=== PATIENT | female | born 1975 | race Caucasian/White ===

== ENCOUNTER 2018-10-17 10:44 | Inpatient (IN) | payer MEDICARE, OTHER ==
[2018-10-17] MEDS ORDERED: Charcoal ACTIVATED* 25 GM/120 ML BTL PO ONE (10:52)
--- NOTE | 2018-10-17 11:02 | ED ---
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 She reports never attempting suicide before, but takes Wellbutrin for depression. Patient previously had renal failure and went into dialysis. After a right kidney transplant, she has felt okay. The patient rates the pain 0/10 in severity. Symptoms aggravated by nothing. Symptoms alleviated by nothing. Patient reports sadness, tiredness, SI. PMHx of FSGS, depression, acute renal failure. PSHx right kidney transplant, appendectomy. FHx of depression, anxiety , skin cancer. Patient very rarely uses alcohol, does not use tobacco or drugs. - History Of Current Complaint Chief Complaint: EDOverdose Stated Complaint: POSS OVERDOSE Time Seen by Provider: 10/17/18 10:51 Hx Obtained From: Patient Ingestion History: Type/Name Of Drug - 5mg oxycodone, Amount Ingested - 16 pills , Approximate Time Of Ingestion - 1 hour [employer]AG MACH[employer] OPERATOR HELPER Overdose Characteristics: Oral Severity Currently: None Character: Depressed, Other - Tired Aggravating Factor(s): Nothing Alleviating Factor(s): Nothing Associated Signs And Symptoms: Other: - SI, tiredness, sadness Related Hx: Suicidal - Allergies/Home Medications Allergies/Adverse Reactions: Allergies Allergy/AdvReac Type Severity Reaction Status Date / Time acetaminophen [From Percocet] Allergy Hallucinati Verified 10/17/18 11:25 ons levofloxacin [From Levaquin] Allergy Hallucinati Verified 10/17/18 11:25 ons oxycodone [From Percocet] Allergy Hallucinati Verified 10/17/18 11:25 ons Penicillins Allergy Rash Verified 10/17/18 11:25 Home Medications: Home Medications Aspirin Tab 81 mg PO DAILY 10/17/18 [History Confirmed 10/17/18] Ergocalciferol CAP* [Drisdol CAP*] 50,000 units PO WEEKLY 10/17/18 [History Confirmed 10/17/18] Folic Acid 1 mg PO DAILY 10/17/18 [History Confirmed 10/17/18] Imitrex TAB* 50 mg PO DAILY PRN 10/17/18 [History Confirmed 10/17/18] Lipitor 20 MG* 10 mg PO DAILY 10/17/18 [History Confirmed 10/17/18] Lisinopril 5 mg PO BID 10/17/18 [History Confirmed 10/17/18] Mag-Oxide 400 mg PO BID 10/17/18 [History Confirmed 10/17/18] Meclofenamate Sodium 375 mg PO BID 10/17/18 [History Confirmed 10/17/18] Metoprolol Tartrate 25 mg PO DAILY 10/17/18 [History Confirmed 10/17/18] Multivitamin 1 tab PO DAILY 10/17/18 [History Confirmed 10/17/18] Prograf CAP(*) 1 mg PO BID 10/17/18 [History Confirmed 10/17/18] Topiramate 50 mg PO DAILY 10/17/18 [History Confirmed 10/17/18] Zantac TAB (NF) 150 mg PO DAILY 10/17/18 [History Confirmed 10/17/18] buPROPion HCl [Bupropion Xl] 150 mg PO DAILY 10/17/18 [History Confirmed ] predniSONE [Prednisone 5 MG TAB] 5 mg PO DAILY 10/17/18 [History Confirmed 10/17] PMH/Surg Hx/FS Hx/Imm Hx Previously Healthy: No History: Reports: Hx Acute Renal Failure, Other Problems/Disorders - FSGS Psychiatric History: Reports: Hx Depression - Surgical History Surgery Procedure, Year, and Place: Right kidney transplant 2017 Infectious Disease History: No Infectious Disease History: Denies: Traveled Outside the [place] in Last 30 Days - Family History Known Family History: Positive: Other - Depression, anxiety, skin cancer - Social History Alcohol Use: Rare Hx Substance Use: No Substance Use Type: Reports: None Hx Tobacco Use: No Smoking Status (MU): Never Smoked Tobacco Review of Systems Neurological: Other - Tired Psychological: Other - SI Positive: Depressed All Other Systems Reviewed And Are Negative: Yes Physical Exam - Summary Physical Exam Summary: VITAL SIGNS: Reviewed. GENERAL: Patient is a well-developed and nourished female who is lying comfortable in the stretcher. Patient is not in any acute respiratory distress. HEAD AND FACE: No signs of trauma. No ecchymosis, hematomas or skull depressions. No sinus tenderness. EYES: PERRLA, EOMI x 2, No injected conjunctiva, no nystagmus. EARS: Hearing grossly intact. Ear canals and tympanic membranes are within normal limits. MOUTH: Oropharynx within normal limits. NECK: Supple, trachea is midline, no adenopathy, no JVD, no carotid bruit, no c- spine tenderness, neck with full ROM. CHEST: Symmetric, no tenderness at palpation LUNGS: Clear to auscultation bilaterally. No wheezing or crackles. CVS: Regular rate and rhythm, S1 and S2 present, no murmurs or gallops appreciated. ABDOMEN: Soft, non-tender. No signs of distention. No rebound no guarding, and no masses palpated. Bowel sounds are normal. EXTREMITIES: FROM in all major joints, no edema, no cyanosis or clubbing. NEURO: Alert and oriented x 3. No acute neurological deficits. Speech is normal and follows commands. SKIN: Dry and warm. Triage Information Reviewed: Yes Vital Signs On Initial Exam: Initial Vitals Temp Pulse Resp BP Pulse Ox 98.4 F 69 18 136/103 100 10/17/18 10:46 10/17/18 10:46 10/17/18 10:46 10/17/18 10:46 10/17/18 10:46 Vital Signs Reviewed: Yes Diagnostics - Vital Signs Vital Signs Temp Pulse Resp BP Pulse Ox 10/17/18 10:46 98.4 F 69 18 136/103 100 - Laboratory Result Diagrams: 10/17/18 11:23 10/17/18 11:23 Lab Statement: Any lab studies that have been ordered have been reviewed, and results considered in the medical decision making process. - EKG 1111 Cardiac Rate: Bradycardia - 59 BPM EKG Rhythm: Sinus Bradycardia ST Segment: Normal Summary of EKG Findings: Sinus bradycardia at 59 BPM, no ST elevations, normal axis. 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 Patient previously had renal failure and went into dialysis. After a right kidney transplant, she has felt okay. The patient rates the pain 0 /10 in severity. Symptoms aggravated by nothing. Symptoms alleviated by nothing. Patient reports sadness, tiredness, SI. PMHx of FSGS, depression, acute renal failure. PSHx right kidney transplant, appendectomy. FHx of depression, anxiety, skin cancer. Patient very rarely uses alcohol, does not use tobacco or drugs. The patient was placed in a cardiac care nurse, IV access was obtained, the patient was given IV fluids, and I ordered charcoal since the patient took her oxycodone orally 1 hour ago. Poison control was contacted and they also recommended IV fluids, Narcan if needed, charcoaled, and observation for possible 6 hours. EKG shows a sinus bradycardia at [address] elevations. Blood test results without any significant abnormality except for creatinine 1.42,. Urinalysis is negative for UTI, and urine toxicology is negative. Therefore, the patient was clear for mental health evaluation. Dr. Mae assessed the patient and he recommends admission to his services for further workup and management. Patient is hemodynamically stable alert and oriented 3. - Diagnoses Provider Diagnoses: Persistent mood [affective] disorder, unspecified Discharge - Sign-Out/Discharge Documenting (check all that apply): Patient Departure - Admit Patient Received Moderate/Deep Sedation with Procedure: No - Discharge Plan Condition: Fair Disposition: ADMITTED TO [facility] - Billing Disposition and Condition Condition: FAIR Disposition: Admitted to [facility] - Attestation Statements Document Initiated by Mauricio: Yes Documenting Scribe: Jensen Mota Provider For Whom Mauricio is Documenting (Include Credential): Art Bartholomew MD Scribe Attestation: I, Jensen Mota, scribed for Art Bartholomew MD on 10/17/18 at 1822. Scribe Documentation Reviewed: Yes Provider Attestation: The documentation as recorded by the Jensen amanda accurately reflects the service I personally performed and the decisions made by me, Art Bartholomew MD Status of Scribe Document: Viewed
[2018-10-17 11:35] LABS: ABS Eosinophils 0.2 10^3/ul (0-0.6); ABS Lymphocytes 0.6 10^3/ul (1.0-4.8); ABS Monocytes 0.6 10^3/ul (0-0.8); ABS Neutrophils 5.4 10^3/ul (1.5-7.7); Eosinophil % 2.4 %; Hematocrit 36 % (35-47); Hemoglobin 11.6 g/dL (12.0-16.0); Lymphocyte % 8.4 %; Mean Corpuscular HGB Conc 32 g/dL (31-36); Mean Corpuscular Hemoglobin 27 pg (27-31); Mean Corpuscular Volume 84 fL (80-97); Mean Platelet Volume 9.4 fL (7.4-10.4); Platelet Count 227 10^3/uL (150-450); Red Blood Count 4.27 10^6 /uL (3.70-4.87); Red Cell Distribution Width 15 % (10-15); White Blood Count 6.7 10^3/uL (3.5-10.8)
[2018-10-17 11:48] LABS: ALT 8 U/L (7-52); AST 12 U/L (13-39); Albumin 3.9 g/dL (3.2-5.2); Albumin/Globulin Ratio 1.9 (1-3); Alkaline Phosphatase 37 U/L (34-104); Anion Gap 4 mmol/L (2-11); BUN/Creatinine Ratio 15.5 (8-20); Blood Urea Nitrogen 22 mg/dL (6-24); CO2 Carbon Dioxide 24 mmol/L (22-32); Calcium 9.7 mg/dL (8.6-10.3); Chloride 110 mmol/L (101-111); EGFR African American 49.3 (>60); EGFR Non-African American 40.8 (>60); Globulin 2.1 g/dL (2-4); Glucose 98 mg/dL (70-100); Sodium 138 mmol/L (135-145)
[2018-10-17 12:00] LABS: Acetaminophen < 15 mcg/mL; Alcohol < 10 mg/dL (<10); Salicylate < 2.50 mg/dL (<30)
[2018-10-17] MEDS ORDERED: NS 0.9% 1000 ML** 1,000 ML IV ONE (12:04)
[2018-10-17 12:11] LABS: HCG Pregnancy < 0.60 mIU/mL
[2018-10-17 12:15] LABS: TSH (Thyroid Stimulating Horm) 2.41 mcIU/mL (0.34-5.60)
[2018-10-17 14:12] LABS: Urine Appearance Clear; Urine Bacteria Absent (Absent); Urine Bilirubin Negative (Negative); Urine Blood Negative (Negative); Urine Color Yellow; Urine Glucose Negative (Negative); Urine Ketones Negative (Negative); Urine Nitrite Negative (Negative); Urine Protein 1+(30 mg/dL) (Negative); Urine Red Blood Cell Absent (Absent); Urine Squamous Epithelial Cell Present (Absent); Urine Urobilinogen Negative (Negative); Urine White Blood Cell Trace(0-5/hpf) (Absent)
[2018-10-17 14:40] LABS: Urine Benzodiazepine Screen None Detected (None Detect); Urine Opiates Screen None Detected (None Detect)
[2018-10-17] MEDS ORDERED: Ondansetron INJ* 2 MG/ML VIAL IV ONE (18:06)
[2018-10-17] MEDS ORDERED: Al Hydrox/Mg Hydrox/Simet LIQ* 30 ML UDC PO PRN (18:43)
[2018-10-17] MEDS ORDERED: SUMAtriptan TAB* 50 MG PO PRN (18:46)
[2018-10-17] MEDS: Tacrolimus CAP(*) 1 MG PO SCH (20:35)
[2018-10-17] MEDS: Tacrolimus CAP(*) 0.5 MG PO SCH (20:37)
[2018-10-17] MEDS ORDERED: [UNRECOGNIZED DRUG - OTHER] PO SCH (21:00)
[2018-10-17] MEDS: MYCOPHENOLATE 360 MG PO SCH (21:46)
[2018-10-17] MEDS: Magnesium Oxide TAB* 400 MG PO SCH (21:46)
[2018-10-17] MEDS: Metoprolol Tartrate TAB* 25 MG PO SCH (22:48)
[2018-10-17] MEDS: Atorvastatin* 20 MG TAB PO SCH (22:48)
[2018-10-17] MEDS: Famotidine TAB* 20 MG PO SCH (22:48)
[2018-10-18 07:19] LABS: HDL Cholesterol 55.5 mg/dL
[2018-10-18] MEDS: Tacrolimus CAP(*) 1 MG PO SCH ×2 (08:20→20:24)
[2018-10-18] MEDS: predniSONE TAB* 5 MG PO SCH (08:20)
[2018-10-18] MEDS: Folic Acid TAB* 1 MG PO SCH (08:20)
[2018-10-18] MEDS: Topiramate TAB(*) 25 MG PO SCH (08:20)
[2018-10-18] MEDS: Vitamin THERAPEUTIC TAB PO SCH (08:20)
[2018-10-18] MEDS: Aspirin EC TAB* 81 MG TAB.EC PO SCH (08:20)
[2018-10-18] MEDS: Lisinopril TAB* 5 MG PO SCH (08:21)
[2018-10-18] MEDS: MYCOPHENOLATE 360 MG PO SCH ×2 (08:22→20:24)
[2018-10-18] MEDS ORDERED: BuPROPion XL* 150 MG TAB.XL PO SCH (09:00)
--- NOTE | 2018-10-18 11:27 | HP ---
H&P (Free Text) History and Physical: Justification for admission: Immediate Safety. CC " I took pills" The patient was brought to [facility] by her after he discovered that she overdoses on 16 pills of oxycodone that she has saved from 2 years ago , when she had a kidney transplant. She was treated for overdose in the emergency department given IV fluids and charcoal. She never lost consciousness. Upon taking the pills she went outside to throw up and noticed that the pills did not come out. At that time her saw what was going on and took her to the hospital. The patient reported current stressors to be fighting with her and not having much family support in [place] . 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 She has been taking care of her after he fell out of a tree stand. She has struggled with thoughts of leaving her because she feels that he was not compassionate about her being sick in the past with kidney issues and depression and has the mind set to "just get over it." Her sister plans to visit from [place] at the end of the week. She has access to firearms at home ( her husbands guns) and stockpiles of medications from her kidney surgery. She reported poor sleep and appetite. The patient denied homicidal ideation intent or plan. The patient denied auditory and/ or visual hallucinations. MDD She reported feeling depressed and having diminished interests which were found to be enjoyable in the past which include cooking and reading. She has been feeling empty inside, with feelings of hopelessness , and worthlessness. She reported unintentional 8lbs weight loss and diminished appetite. She has interruption of sleep and decreased concentration. Anxiety Denied having symptoms of anxiety such as having times where heart feels that it is beating out of chest , sweaty palms, or shallow breathing. Denied having uncomfortable or intrusive thoughts. Denied feeling restless, high strung, or worrying too much most of the time. Bipolar Denied symptoms of mandeep such as having many ideas at once. Denied increased talkativeness where no one can interrupt. Denied feeling irritable most of the time while having an persistent abundance of energy most of the day without the use of energy drinks, stimulants, or recreational drug use. Denied an increase in intensity in goal directed activities. Denied having the decreased need to sleep for days , having prolonged elevated heighted mood , or feeling on top of the world. Denied impulsive risky sexual encounters. Denied spending money recklessly , going on spending sprees wiping out savings. Denied impulsively traveling out of town or country, having super gregory, and unrealistic wealth or fame. Psychosis Does not endorse hearing things that other people do not hear or seeing things other people do not see. Denied feeling that TV is making references. Denied feeling that people are spying , following , or reading their thoughts. Phobias: Patient denied having excessive fear of a particular thing or situation. Eating disorders: Patient denied having excessive eating habits or feelings of guilt after eating. Denied repeated episodes of self induced vomiting after eating. PTSD Denied flashbacks, nightmares and avoidance of a prior traumatic event. PAST PSYCHIATRIC HISTORY: Prior Diagnosis : Major Depressive Disorder first episode in mid teens. History of past Psychiatric Hospitalizations: No prior psychiatric admission. History of past suicide/homicide attempts : Denied past suicide attempts. Denied past homicidal incidents. Outpatient follow-up: No mental health follow up since 2016 in [place]. Medications: Past trials of medications include vortioxetine 20mg daily. Prior positive response between [id number] and stopped taking in 2016 due to not wanting to take pills anymore. Current mediations include wellbutrin 150mg daily Guardianship: None. FAMILY HISTORY: - Suicide: Denied family history of suicide. - Mental illness: One of her sisters Dx with depression, the other Bipolar II disorder. Father Dx with Anxiety disorder - Substance abuse: Denied substance abuse among family members. SUBSTANCE ABUSE HISTORY: Denied using alcohol, tobacco, heroin cocaine or other illicit substances. Denied recreationally abusing pills. Denied past Substance abuse treatment. SOCIAL HISTORY: She grew up in [facility]. Both of her parents are together and living in [place]. She denied physical and or sexual trauma. She is , no children and lives with her in [facility]. 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 - Legal history: Denied - service history: Denied PAST MEDICAL HISTORY: Focal segmental glomerulosclerosis. Dx at 32 years old and underwent a kidney transplant in December 2016. - Allergies: Penicillin, oxycodone, levofloxacin, acetaminophen. Physical Exam: Please see ED note Mental Status Exam on Admission APPEARANCE : 43 year old female who appears stated age. Patient is not malodourous, and appears to have fair hygiene and grooming. BEHAVIOR: Cooperative , calm EYE CONTACT: Fair PSYCHOMOTOR ACTIVITY: No psychomotor agitation or retardation. MOVEMENTS: No abnormal movements observed. SPEECH : Normal rate, rhythm, volume and tone. MOOD : "okay " AFFECT : Type is depressed, Range is restricted with shallow depth Mood Congruent Labile THOUGHT PROCESS: Formulated and organized in a logical, linear goal directed manner. No flight of ideas, neologism (made up words) , perseveration , tangential , loose associations , or circumstantiality. THOUGHT CONTENT: no delusions, obsessions, phobias or preoccupations. PERCEPTION: No current auditory or visual hallucinations. Doesnt appear to be responding to internal cues. No evidence of depersonalization , de-realization, or illusions SUICIDALITY Recent suicide attempt HOMICIDALITY Denied homicidal ideation, intent or plan. Insight/judgment: Fair insight and judgment ORIENTATION: Oriented to self, location, and time. Diagnosis on Admission: Major Depressive disorder, severe. Assessment: 43 year old female with a history of major depressive disorder came to the hospital following a overdose of 16 pills of oxycodone and was stabilized in the emergency room and admitted to the [facility] at [facility]. Plan #Admit to BSU, Q15 minute observation. Start regular diet. Encourage participation in activities on the milieu. #Patient evaluated in ED and was determined by the emergency room Physician to be medically fit for admission to the BSU. # Justification for Admission: For immediate safety per outlined in the [place] Mental Hygiene Code. # Voluntary admission. The patient requires inpatient admission at this time to assure safety, receive treatment and work toward stabilization. # Labs ordered: CBC, CMP, UDS, TSH, HBA1c, TSH, Toxicology screen, Urine analysis, and lipid profile. # EKG ordered # B-HCG was ordered and results are negative. # Obtain collateral information from , have firearms removed and or locked up and stockpile of medications removed. # Collaboration with Social Work to assist with disposition and after care. # Start trintellix 10mg daily, no dose adjustment required for renal disease. Taper down wellbutrin due to renal interaction. #Medicine consulted for medical issues and recommended repeating CMP to monitor Cr. #Monitor vital signs and monitor for change in mental status. #Goals before discharge include: To eliminate/ reduce suicidal ideation The risks, benefits, and alternative treatment options were discussed as well as of the risks of refusing treatment. After this discussion and an acknowledgement of this understanding was made. A risk/ benefit assessment of treatment was considered and discussed with the patient. When comparing the risks of treatment with the dangers of not receiving treatment, the benefits of treatment outweigh the treatment risks at this time. Risks of allergy, suicidal ideation, behavioral changes, dystonia, rashes, electrolyte imbalances, movement disorders, cardiac conduction changes, serotonin syndrome, metabolic risks were among some of the risks discussed. Vital Signs Temp Pulse Resp BP Pulse Ox 98.7 F 72 16 118/74 100 10/18/18 08:00 10/18/18 08:00 10/18/18 08:00 10/18/18 08:00 10/18/18 08:00 Al Hydrox/Mg Hydrox/Simethicone (Maalox Plus*) 30 ml PO Q4H PRN PRN Reason: INDIGESTION Aspirin (Aspirin Ec Tab*) 81 mg PO DAILY [facility] Last Admin: 10/18/18 08:20 Dose: 81 mg Atorvastatin Calcium (Lipitor*) 20 mg PO BEDTIME [facility] Last Admin: 10/17/18 22:48 Dose: 20 mg Bupropion HCl (Wellbutrin Tab*) 75 mg PO DAILY [facility] Ergocalciferol (Drisdol Cap*) 5,000 unit PO WEEKLY [facility] Famotidine (Pepcid Tab*) 20 mg PO BEDTIME [facility] Last Admin: 10/17/18 22:48 Dose: 20 mg Folic Acid (Folvite Tab*) 1 mg PO DAILY [facility] Last Admin: 10/18/18 08:20 Dose: 1 mg Lisinopril (Prinivil Tab*) 5 mg PO DAILY [facility] Last Admin: 10/18/18 08:21 Dose: 5 mg Magnesium Oxide (Magox 400 Tab*) 400 mg PO BID [facility] Last Admin: 10/18/18 12:02 Dose: 400 mg Metoprolol Tartrate (Lopressor Tab*) 25 mg PO BEDTIME [facility] Last Admin: 10/17/18 22:48 Dose: 25 mg Multivitamins (Theragran Tab*) 1 tab PO DAILY [facility] Last Admin: 10/18/18 08:20 Dose: 1 tab Mycophenolate Sodium (Myfortic (Nf)) 360 mg PO BID [facility] Last Admin: 10/18/18 08:22 Dose: 360 mg Prednisone (Deltasone Tab*) 5 mg PO DAILY [facility] Last Admin: 10/18/18 08:20 Dose: 5 mg Sumatriptan Succinate (Imitrex Tab*) 50 mg PO DAILY PRN PRN Reason: MIGRAINE HEADACHE Tacrolimus (Prograf Cap(*)) 3 mg PO BID [facility] Last Admin: 10/18/18 08:20 Dose: 3 mg Tacrolimus (Prograf Cap(*)) 0.5 mg PO BEDTIME [facility] Last Admin: 10/17/18 20:37 Dose: 0.5 mg Topiramate (Topamax(*)) 50 mg PO DAILY [facility] Last Admin: 10/18/18 08:20 Dose: 50 mg Vortioxetine (Trintellix (Nf)) 10 mg PO DAILY [facility] 10/17/18 10/17/18 10/17/18 11:23 11:23 11:23 WBC 6.7 RBC 4.27 Hgb 11.6 L Hct 36 MCV 84 MCH 27 MCHC 32 RDW 15 Plt Count 227 MPV 9.4 Neut % (Auto) 79.7 Lymph % (Auto) 8.4 [place] % (Auto) 8.8 Eos % (Auto) 2.4 Baso % (Auto) 0.7 Absolute Neuts (auto) 5.4 Absolute Lymphs (auto) 0.6 L Absolute Monos (auto) 0.6 Absolute Eos (auto) 0.2 Absolute Basos (auto) 0.0 Absolute Nucleated RBC 0.0 Nucleated RBC % 0.0 Sodium 138 Potassium 5.0 Chloride 110 Carbon Dioxide 24 Anion Gap 4 BUN 22 Creatinine 1.42 H Est GFR ( Amer) 49.3 Est GFR (Non-Af Amer) 40.8 BUN/Creatinine Ratio 15.5 Glucose 98 Hemoglobin A1c Lactic Acid 0.4 L Calcium 9.7 Total Bilirubin 0.50 AST 12 L ALT 8 Alkaline Phosphatase 37 Total Protein 6.0 L Albumin 3.9 Globulin 2.1 Albumin/Globulin Ratio 1.9 Triglycerides Cholesterol LDL Cholesterol HDL Cholesterol TSH 2.41 Beta HCG, Quant < 0.60 Urine Color Urine Appearance Urine pH Ur Specific [place] Urine Protein Urine Ketones Urine Blood Urine Nitrate Urine Bilirubin Urine Urobilinogen Ur Leukocyte Esterase Urine WBC (Auto) Urine RBC (Auto) Ur Squamous Epith Cells Urine Bacteria Urine Glucose Salicylates < 2.50 Urine Opiates Screen Acetaminophen < 15 Ur Barbiturates Screen Ur Phencyclidine Scrn Ur Amphetamines Screen U Benzodiazepines Scrn Urine Cocaine Screen U Cannabinoids Screen Serum Alcohol < 10 10/17/18 10/17/18 10/18/18 13:55 13:55 06:54 WBC RBC Hgb Hct MCV MCH MCHC RDW Plt Count MPV Neut % (Auto) Lymph % (Auto) [place] % (Auto) Eos % (Auto) Baso % (Auto) Absolute Neuts (auto) Absolute Lymphs (auto) Absolute Monos (auto) Absolute Eos (auto) Absolute Basos (auto) Absolute Nucleated RBC Nucleated RBC % Sodium Potassium Chloride Carbon Dioxide Anion Gap BUN Creatinine Est GFR ( Amer) Est GFR (Non-Af Amer) BUN/Creatinine Ratio Glucose Hemoglobin A1c Lactic Acid Calcium Total Bilirubin AST ALT Alkaline Phosphatase Total Protein Albumin Globulin Albumin/Globulin Ratio Triglycerides 116 Cholesterol 141 LDL Cholesterol 62 HDL Cholesterol 55.5 TSH Beta HCG, Quant Urine Color Yellow Urine Appearance Clear Urine pH 6.0 Ur Specific [place] 1.010 Urine Protein 1+(30 mg/dl) A Urine Ketones Negative Urine Blood Negative Urine Nitrate Negative Urine Bilirubin Negative Urine Urobilinogen Negative Ur Leukocyte Esterase Negative Urine WBC (Auto) Trace(0-5/hpf) Urine RBC (Auto) Absent Ur Squamous Epith Cells Present A Urine Bacteria Absent Urine Glucose Negative Salicylates Urine Opiates Screen None detected Acetaminophen Ur Barbiturates Screen None detected Ur Phencyclidine Scrn None detected Ur Amphetamines Screen None detected U Benzodiazepines Scrn None detected Urine Cocaine Screen None detected U Cannabinoids Screen None detected Serum Alcohol 10/18/18 06:54 WBC RBC Hgb Hct MCV MCH MCHC RDW Plt Count MPV Neut % (Auto) Lymph % (Auto) [place] % (Auto) Eos % (Auto) Baso % (Auto) Absolute Neuts (auto) Absolute Lymphs (auto) Absolute Monos (auto) Absolute Eos (auto) Absolute Basos (auto) Absolute Nucleated RBC Nucleated RBC % Sodium Potassium Chloride Carbon Dioxide Anion Gap BUN Creatinine Est GFR ( Amer) Est GFR (Non-Af Amer) BUN/Creatinine Ratio Glucose Hemoglobin A1c 5.5 Lactic Acid Calcium Total Bilirubin AST ALT Alkaline Phosphatase Total Protein Albumin Globulin Albumin/Globulin Ratio Triglycerides Cholesterol LDL Cholesterol HDL Cholesterol TSH Beta HCG, Quant Urine Color Urine Appearance Urine pH Ur Specific [place] Urine Protein Urine Ketones Urine Blood Urine Nitrate Urine Bilirubin Urine Urobilinogen Ur Leukocyte Esterase Urine WBC (Auto) Urine RBC (Auto) Ur Squamous Epith Cells Urine Bacteria Urine Glucose Salicylates Urine Opiates Screen Acetaminophen Ur Barbiturates Screen Ur Phencyclidine Scrn Ur Amphetamines Screen U Benzodiazepines Scrn Urine Cocaine Screen U Cannabinoids Screen Serum Alcohol
[2018-10-18] MEDS: Magnesium Oxide TAB* 400 MG PO SCH ×2 (12:02→22:30)
[2018-10-18] MEDS: VORTIOXETINE 10 MG PO SCH (16:14)
[2018-10-18] MEDS: Tacrolimus CAP(*) 0.5 MG PO SCH (20:25)
[2018-10-18] MEDS: Famotidine TAB* 20 MG PO SCH (20:25)
[2018-10-18] MEDS: Atorvastatin* 20 MG TAB PO SCH (20:25)
[2018-10-18] MEDS: Metoprolol Tartrate TAB* 25 MG PO SCH (20:31)
[2018-10-19] MEDS ORDERED: Ondansetron TAB* 4 MG PO ONE (08:44)
[2018-10-19] MEDS ORDERED: Ondansetron TAB* 4 MG ONE (09:01)
[2018-10-19] MEDS: Tacrolimus CAP(*) 1 MG PO SCH ×2 (09:02→20:41)
[2018-10-19] MEDS: buPROPion TAB* 75 MG PO SCH (09:02)
[2018-10-19] MEDS: Magnesium Oxide TAB* 400 MG PO SCH ×2 (09:03→23:26)
[2018-10-19] MEDS: predniSONE TAB* 5 MG PO SCH (09:03)
[2018-10-19] MEDS: Lisinopril TAB* 5 MG PO SCH (09:04)
[2018-10-19] MEDS: Folic Acid TAB* 1 MG PO SCH (09:04)
[2018-10-19] MEDS: Topiramate TAB(*) 25 MG PO SCH (09:04)
[2018-10-19] MEDS: Aspirin EC TAB* 81 MG TAB.EC PO SCH (09:05)
[2018-10-19] MEDS: Vitamin THERAPEUTIC TAB PO SCH (09:05)
[2018-10-19] MEDS: VORTIOXETINE 10 MG PO SCH (09:06)
[2018-10-19] MEDS: MYCOPHENOLATE 360 MG PO SCH ×2 (09:11→20:38)
[2018-10-19] MEDS ORDERED: Benzonatate CAP* 100 MG PO PRN (12:51)
[2018-10-19] MEDS ORDERED: Ondansetron TAB* 4 MG PO PRN (12:53)
[2018-10-19] MEDS: Pantoprazole TAB * 40 MG TAB PO SCH (14:03)
--- NOTE | 2018-10-19 16:24 | PN ---
Subjective - Subjective Date of Service: 10/19/18 Service Type: 95071 Hosp care 35 min high complexity Subjective: Nursing Report: Patient was visible on unit, no chemical restraints or PRNs. Patient had multiple episodes of emesis . Attending group activities. CC: "Alright Patient was seen and evaluated today in the common room. She is excited to see her sister who is coming from [facility], on . The patient reported she feels safe on the unit and is interacting with peers. She reported having an adequate appetite and sleep but reports feeling nauseated and threw up a few times. The patient reports attending and participating in day groups. Objective - General Observations Appearance: Neat Appears Stated Age: Yes Stature: Thin Posture: WNL Eye Contact: Average Behavior/Activity: WNL - Interaction Observations Attitude Towards Examiner: Cooperative Stated Mood: Dysphoric Affect: Blunted Speech Pattern/Tone: Clear Thought Process: Coherent Perception: WNL Thought Content: Depressive Thought Process: Lethality: Passive Wish Hallucination Type: None Delusion Type: None - Cognitive Function Orientation: A&O x 4 Level of Consciousness: Awake Cognition: WNL - Medication Compliance Cooperative with Inpatient Medication Regimen: Yes - Group Participation Participates in Group Activities: Yes Assessment - Assessment Merits Inpatient Hospitalization: For Immediate Safety Clinical Impression: 43 year old female with a history of major depressive disorder, presented after a suicide attempt by overdosing on oxycodone. Plan - Plan Treatment Plan: Name: FANNY VARELA Birthdate: 1975 [id number] # Q30 minute observation with staff pass # Social Work on board # Start trintellix 10mg daily, no dose adjustment required for renal disease. To take with food. # Plan to taper down wellbutrin due to renal interaction. #Medicine consulted for medical issues and recent emesis and fever. They determined that she can be treated in the setting of the [facility]. #Monitor vital signs #Goals before discharge include: To eliminate/ reduce suicidal ideation Sodium 138 mmol/L (135-145) 10/17/18 11:23 Potassium 5.0 mmol/L (3.5-5.0) 10/17/18 11:23 BUN 22 mg/dL (6-24) 10/17/18 11:23 Creatinine 1.42 mg/dL (0.51-0.95) H 10/17/18 11:23 Hemoglobin A1c 5.5 % (4.0-5.6) 10/18/18 06:54 Calcium 9.7 mg/dL (8.6-10.3) 10/17/18 11:23 AST 12 U/L (13-39) L 10/17/18 11:23 ALT 8 U/L (7-52) 10/17/18 11:23 Triglycerides 116 mg/dL 10/18/18 06:54 Cholesterol 141 mg/dL 10/18/18 06:54 LDL Cholesterol 62 mg/dL 10/18/18 06:54 Vital Signs Temp Pulse Resp BP Pulse Ox 101.1 F 87 18 133/77 99 10/19/18 08:57 10/19/18 08:57 10/19/18 11:09 10/19/18 08:57 10/19/18 08:57 Continued Medication Management: Continue Outpt Medication Medications: Current Medications Acetaminophen (Tylenol Tab*) 650 mg PO Q6H PRN PRN Reason: FEVER/HEADACHE Al Hydrox/Mg Hydrox/Simethicone (Maalox Plus*) 30 ml PO Q4H PRN PRN Reason: INDIGESTION Last Admin: 10/19/18 05:47 Dose: 30 ml Aspirin (Aspirin Ec Tab*) [address] [facility] Last Admin: 10/19/18 09:05 Dose: 81 mg Atorvastatin Calcium (Lipitor*) [address] [facility] Last Admin: 10/18/18 20:25 Dose: 20 mg Benzonatate (Tessalon Cap*) 100 mg PO BID PRN PRN Reason: COUGH Bupropion HCl (Wellbutrin Tab*) [address] [facility] Last Admin: 10/19/18 09:02 Dose: 75 mg Ergocalciferol (Drisdol Cap*) 5,[address] [facility] Folic Acid (Folvite Tab*) [address] [facility] Last Admin: 10/19/18 09:04 Dose: 1 mg Lisinopril (Prinivil Tab*) [address] [facility] Last Admin: 10/19/18 09:04 Dose: 5 mg Magnesium Oxide (Magox 400 Tab*) [address] [facility] Last Admin: 10/19/18 09:03 Dose: 400 mg Metoprolol Tartrate (Lopressor Tab*) [address] [facility] Last Admin: 10/18/18 20:31 Dose: 25 mg Multivitamins (Theragran Tab*) [address] [facility] Last Admin: 10/19/18 09:05 Dose: 1 tab Mycophenolate Sodium (Myfortic (Nf)) [address] [facility] Last Admin: 10/19/18 09:11 Dose: 360 mg Ondansetron HCl (Zofran Tab*) 4 mg PO Q6H PRN PRN Reason: NAUSEA Pantoprazole Sodium (Protonix Tab*) [address] [facility] Last Admin: 10/19/18 14:03 Dose: 40 mg Prednisone (Deltasone Tab*) [address] [facility] Last Admin: 10/19/18 09:03 Dose: 5 mg Sumatriptan Succinate (Imitrex Tab*) 50 mg PO DAILY PRN PRN Reason: MIGRAINE HEADACHE Last Admin: 10/19/18 05:47 Dose: 50 mg Tacrolimus (Prograf Cap(*)) [address] [facility] Last Admin: 10/19/18 09:02 Dose: 3 mg Tacrolimus (Prograf Cap(*)) 0.[address] [facility] Last Admin: 10/18/18 20:25 Dose: 0.5 mg Topiramate (Topamax(*)) [address] [facility] Last Admin: 10/19/18 09:04 Dose: 50 mg Vortioxetine (Trintellix (Nf)) [address] [facility] Last Admin: 10/19/18 09:06 Dose: 10 mg - Discharge Plan Discharge Plan: Inpatient Hospitalization
[2018-10-19] MEDS: Atorvastatin* 20 MG TAB PO SCH (20:36)
[2018-10-19] MEDS: Metoprolol Tartrate TAB* 25 MG PO SCH (20:37)
[2018-10-19] MEDS: Tacrolimus CAP(*) 0.5 MG PO SCH (20:40)
[2018-10-19 22:15] LABS: ABS Basophils 0.1 10^3/ul (0-0.2); ABS Eosinophils 0.3 10^3/ul (0-0.6); ABS Lymphocytes 0.5 10^3/ul (1.0-4.8); ABS Monocytes 1.3 10^3/ul (0-0.8); ABS Neutrophils 9.5 10^3/ul (1.5-7.7); Eosinophil % 2.5 %; Hematocrit 37 % (35-47); Hemoglobin 12.4 g/dL (12.0-16.0); Mean Corpuscular HGB Conc 33 g/dL (31-36); Mean Corpuscular Hemoglobin 28 pg (27-31); Mean Corpuscular Volume 83 fL (80-97); Mean Platelet Volume 9.5 fL (7.4-10.4); Platelet Count 220 10^3/uL (150-450); Red Blood Count 4.49 10^6 /uL (3.70-4.87); Red Cell Distribution Width 15 % (10-15); White Blood Count 11.7 10^3/uL (3.5-10.8)
[2018-10-19 22:31] LABS: BUN/Creatinine Ratio 12.5 (8-20); Calcium 9.1 mg/dL (8.6-10.3); EGFR African American 59.9 (>60); EGFR Non-African American 49.5 (>60)
[2018-10-20 07:47] LABS: ABS Eosinophils 0.3 10^3/ul (0-0.6); ABS Lymphocytes 0.6 10^3/ul (1.0-4.8); ABS Monocytes 1.1 10^3/ul (0-0.8); ABS Neutrophils 6.3 10^3/ul (1.5-7.7); Eosinophil % 3.5 %; Hematocrit 34 % (35-47); Hemoglobin 11.3 g/dL (12.0-16.0); Lymphocyte % 7.3 %; Mean Corpuscular HGB Conc 33 g/dL (31-36); Mean Corpuscular Hemoglobin 28 pg (27-31); Mean Corpuscular Volume 83 fL (80-97); Mean Platelet Volume 9.7 fL (7.4-10.4); Nucleated Red Blood Cells % 0.1; Platelet Count 189 10^3/uL (150-450); Red Cell Distribution Width 15 % (10-15); White Blood Count 8.4 10^3/uL (3.5-10.8)
[2018-10-20 08:15] LABS: Albumin 3.5 g/dL (3.2-5.2); Albumin/Globulin Ratio 1.8 (1-3); BUN/Creatinine Ratio 10.4 (8-20); Calcium 8.5 mg/dL (8.6-10.3); EGFR African American 69.1 (>60); EGFR Non-African American 57.1 (>60); Globulin 1.9 g/dL (2-4); Potassium 4.2 mmol/L (3.5-5.0); Total Bilirubin 0.4 mg/dL (0.2-1.0); Total Protein 5.4 g/dL (6.4-8.9)
[2018-10-20] MEDS: Tacrolimus CAP(*) 1 MG PO SCH ×2 (08:39→20:13)
[2018-10-20] MEDS: predniSONE TAB* 5 MG PO SCH (08:39)
[2018-10-20] MEDS: VORTIOXETINE 10 MG PO SCH (08:40)
[2018-10-20] MEDS: MYCOPHENOLATE 360 MG PO SCH ×2 (08:42→20:12)
[2018-10-20] MEDS: Folic Acid TAB* 1 MG PO SCH (08:43)
[2018-10-20] MEDS: Lisinopril TAB* 5 MG PO SCH (08:43)
[2018-10-20] MEDS: buPROPion TAB* 75 MG PO SCH (08:44)
[2018-10-20] MEDS: Vitamin THERAPEUTIC TAB PO SCH (08:44)
[2018-10-20] MEDS: Aspirin EC TAB* 81 MG TAB.EC PO SCH (08:44)
[2018-10-20] MEDS: Pantoprazole TAB * 40 MG TAB PO SCH (08:44)
[2018-10-20] MEDS: Topiramate TAB(*) 25 MG PO SCH (08:44)
--- NOTE | 2018-10-20 08:54 | PN ---
Subjective - Subjective Date of Service: 10/20/18 Service Type: 27324 Hosp care 35 min high complexity Subjective: Nursing Report: Patient was visible on unit, no chemical restraints or PRNs. Patient had no episodes of emesis during the evening or this AM . Attending group activities. CC: "Better Patient was seen and evaluated today in the common room. She denied fever, nausea or vomiting overnight and is eating breakfast this morning. Her sister plans to arrive from [facility], on evening. The patient reported she feels safe on the unit and is interacting with peers. The patient reported attending and participating in day groups. Objective - General Observations Appearance: Neat Appears Stated Age: Yes Stature: WNL Posture: WNL Eye Contact: Average Behavior/Activity: WNL - Interaction Observations Attitude Towards Examiner: Cooperative Stated Mood: Dysphoric Affect: Blunted Speech Pattern/Tone: Clear Thought Process: Coherent, Disorganized Thought Content: WNL, Paranoid Thought Process: Lethality: Paranoid Ideation Hallucination Type: None, Auditory Delusion Type: None, Thought Broadcasting - Cognitive Function Orientation: A&O x 4 Level of Consciousness: Awake - Medication Compliance Cooperative with Inpatient Medication Regimen: Yes - Group Participation Participates in Group Activities: Yes Assessment - Assessment Clinical Impression: 43 year old female with a history of major depressive disorder, presented after a suicide attempt by overdosing on oxycodone. Plan - Plan Treatment Plan: Name: FANNY VARELA Birthdate: 1975 [id number] # Q30 minute observation with staff pass # Social Work on board #D/C wellbutrin # Continue trintellix 10mg daily, no dose adjustment required for renal disease. To take with food. #Medical management per Medicine team. #Monitor vital signs #Goals before discharge include: To eliminate/ reduce suicidal ideation Giovani her confirmed firearms locked in safe and he got rid of stockpile of medications Tentative discharge Thursday at 11am her sister and plan to pick her up. Vital Signs Temp Pulse Resp BP Pulse Ox 98.9 F 86 20 143/89 100 10/20/18 08:00 10/20/18 08:00 10/20/18 08:00 10/20/18 08:00 10/20/18 08:00 Sodium 138 mmol/L (135-145) 10/17/18 11:23 Potassium 5.0 mmol/L (3.5-5.0) 10/17/18 11:23 BUN 22 mg/dL (6-24) 10/17/18 11:23 Creatinine 1.42 mg/dL (0.51-0.95) H 10/17/18 11:23 Hemoglobin A1c 5.5 % (4.0-5.6) 10/18/18 06:54 Calcium 9.7 mg/dL (8.6-10.3) 10/17/18 11:23 AST 12 U/L (13-39) L 10/17/18 11:23 ALT 8 U/L (7-52) 10/17/18 11:23 Triglycerides 116 mg/dL 10/18/18 06:54 Cholesterol 141 mg/dL 10/18/18 06:54 LDL Cholesterol 62 mg/dL 10/18/18 06:54 Continued Medication Management: Continue Outpt Medication Medications: Current Medications Acetaminophen (Tylenol Tab*) 650 mg PO Q6H PRN PRN Reason: FEVER/HEADACHE Al Hydrox/Mg Hydrox/Simethicone (Maalox Plus*) 30 ml PO Q4H PRN PRN Reason: INDIGESTION Last Admin: 10/19/18 05:47 Dose: 30 ml Aspirin (Aspirin Ec Tab*) 81 mg PO DAILY [facility] Last Admin: 10/20/18 08:44 Dose: 81 mg Atorvastatin Calcium (Lipitor*) 20 mg PO BEDTIME [facility] Last Admin: 10/19/18 20:36 Dose: 20 mg Benzonatate (Tessalon Cap*) 100 mg PO BID PRN PRN Reason: COUGH Bupropion HCl (Wellbutrin Tab*) 75 mg PO DAILY [facility] Last Admin: 10/20/18 08:44 Dose: 75 mg Ergocalciferol (Drisdol Cap*) 5,000 unit PO WEEKLY [facility] Folic Acid (Folvite Tab*) 1 mg PO DAILY [facility] Last Admin: 10/20/18 08:43 Dose: 1 mg Lisinopril (Prinivil Tab*) 5 mg PO DAILY [facility] Last Admin: 10/20/18 08:43 Dose: 5 mg Magnesium Oxide (Magox 400 Tab*) 400 mg PO BID [facility] Last Admin: 10/19/18 23:26 Dose: Not Given Metoprolol Tartrate (Lopressor Tab*) 25 mg PO BEDTIME [facility] Last Admin: 10/19/18 20:37 Dose: 25 mg Multivitamins (Theragran Tab*) 1 tab PO DAILY [facility] Last Admin: 10/20/18 08:44 Dose: 1 tab Mycophenolate Sodium (Myfortic (Nf)) 360 mg PO BID [facility] Last Admin: 10/20/18 08:42 Dose: 360 mg Ondansetron HCl (Zofran Tab*) 4 mg PO Q6H PRN PRN Reason: NAUSEA Pantoprazole Sodium (Protonix Tab*) 40 mg PO DAILY [facility] Last Admin: 10/20/18 08:44 Dose: 40 mg Prednisone (Deltasone Tab*) 5 mg PO DAILY [facility] Last Admin: 10/20/18 08:39 Dose: 5 mg Sumatriptan Succinate (Imitrex Tab*) 50 mg PO DAILY PRN PRN Reason: MIGRAINE HEADACHE Last Admin: 10/19/18 05:47 Dose: 50 mg Tacrolimus (Prograf Cap(*)) 3 mg PO BID [facility] Last Admin: 10/20/18 08:39 Dose: 3 mg Tacrolimus (Prograf Cap(*)) 0.5 mg PO BEDTIME [facility] Last Admin: 10/19/18 20:40 Dose: 0.5 mg Topiramate (Topamax(*)) 50 mg PO DAILY [facility] Last Admin: 10/20/18 08:44 Dose: 50 mg Vortioxetine (Trintellix (Nf)) 10 mg PO DAILY WITH MEAL [facility] Last Admin: 10/20/18 08:40 Dose: 10 mg - Discharge Plan Discharge Plan: Inpatient Hospitalization
[2018-10-20] MEDS: Magnesium Oxide TAB* 400 MG PO SCH ×2 (11:18→23:55)
--- NOTE | 2018-10-20 12:49 | CONSULT ---
Subjective Date of Service: 10/19/18 Interval History: Ms. Burk is a 43 year old female that was admitted to [facility] for intentional overdose of narcotics. We have bee requeted for medical consult for current complaints of fever, nausea and vomiting. In particular, she vomited after taking her meds but was on an empty stomach. The patient also has medical history of renal transplant and is on immunosuppressive therapy. Ms. Burk was evaluated in her room. She is currently feeling better, vomiting is improved, she is afebrile, states has a persistent cough, mildly productive. Had a soft stool today without overt diarrhea. She was able to tolerate clear liquids this morning. She works at [employer]. Review of Systems - Measurements Intake and Output: Intake and Output Last 24 Hours 10/18/18 10/19/18 10/20/18 10/21/18 06:59 06:59 06:59 06:59 Intake Total 1000 Balance 1000 Weight 165 lb 165 lb 165 lb Intake: IV Fluids 1000 - Review of Systems Constitutional Symptoms: Negative: Weight Gain, Weight Loss, Weakness, Fatigue, Fever, Night Sweats, Unexplained Falls, Other Dermatology: Negative: Normal, Rash, Skin Lesions, Cancer, Skin Lumps, Other HEENT: Negative: Normal, Change in Hearing, Vertigo, Dental Problems, Tinnitus, Sinus Problem, Other Eyes: Negative: Normal, Change in Vision, Double Vision, Eye Pain, Glaucoma, Cataract, Contacts or Glasses, Other Thyroid: Negative: Normal, Goiter, Thyroid Nodule, Cold Intolerance, Heat Intolerance , Sweatiness, Tremor, Frequent Defecation, Constipation, Palpitations, Primary Hypothyroidism, Primary Hyperthyroidism, Weight Loss, Weight Gain, Change in Skin/Hair, Change in Menstruation, Radiation Exposure, Other Pulmonary: Positive: Cough, Sputum Negative: Normal, Hemoptysis, Wheezing, Respiratory Distress, Shortness of Breath, COPD, Asthma, Exercise Intolerance, Home Oxygen, Other Cardiology: Negative: Normal, Chest Pain, Shortness of Breath, Palpitations, Swelling of Ankles, Peripheral Vascular Dis, Edema, Faintness, Syncope, Claudication, Proximal NocturnalDyspnea, Orthopnoea, Other Gastroenterology: Positive: Nausea, Vomiting Negative: Normal, Abdominal Pain, Anorexia, Indigestion, Difficulty Swallowing, Heartburn, Constipation, Diarrhea, Blood in Stools, Change in Bowel Habits, Haematemesis, Melena, Other Genital - Urinary: Negative: Normal, Dysuria, Hematuria, Polyuria, Nocturia, Other Genitourinay - Female: Negative: Menses Normal, Vaginal Discharge, Menopause, Dysmenorrhea, Other Musculoskeletal: Negative: Joint Pain, Joint Stiffness, Arthritis, Osteoporosis, Low Back Pain , Sciatica, Joint Deformities, Kyphoscoliosis, Other Endocrinology: Negative: Normal, Thyroid Problems, Adrenal Problems, Gonadal Problems, Family Hx Endocrine Disorders, Obesity, Diabetes Mellitus, Hyperglycemia, Hx Hypoglycemia, Diabetic Foot Ulcers, Calluses, Hirsutism, Menstrual Abnormalities , Polydipsia, Polyuria, Gonadal Problems, Gynecomastia, Pituitary disease, Other Hematologic/Lymphatic: Negative: Anemia, Easy Bruising, Hx Leukemia, Hx Lymphoma, Use of Anticoagulant, Use of Antiplatelet Drugs, Other Neurology: Negative: Normal, Headache, Migraines, Change in Vision, Diplopia, Dizziness , Change in Balancing, Change in Coordination, Change in Memory, Change in Speech, Change in Sphincter Function, Change in Walking, Numbness\Paresthesiae, Unexplained Weakness, Hx of Stroke\TIA, Hx of Seizures, Other Psychiatry: Positive: Depression, Depressed Mood Negative: Normal, Anxiety, Anhedonia, Sexual Dysfunction, Weight Change, Guilt Feelings, Tearfulness, Unusual Fatigue, Unusual Anxiety, Suicidal Ideation , Hypomania, Eating Disorders, Other Allergic/Immunologic: Positive: Immunocompromise Negative: Hx Anaphylaxis, Hx Angioedema, Hx Environmental, Hx Seasonal, Asthma, Hx HIV, Swollen Glands LymphNodes, Other Objective Active Medications: Acetaminophen (Tylenol Tab*) 650 mg PO Q6H PRN PRN Reason: FEVER/HEADACHE Al Hydrox/Mg Hydrox/Simethicone (Maalox Plus*) 30 ml PO Q4H PRN PRN Reason: INDIGESTION Last Admin: 10/19/18 05:47 Dose: 30 ml Aspirin (Aspirin Ec Tab*) 81 mg PO DAILY [facility] Last Admin: 10/20/18 08:44 Dose: 81 mg Atorvastatin Calcium (Lipitor*) 20 mg PO BEDTIME [facility] Last Admin: 10/19/18 20:36 Dose: 20 mg Benzonatate (Tessalon Cap*) 100 mg PO BID PRN PRN Reason: COUGH Ergocalciferol (Drisdol Cap*) 5,000 unit PO WEEKLY [facility] Folic Acid (Folvite Tab*) 1 mg PO DAILY [facility] Last Admin: 10/20/18 08:43 Dose: 1 mg Lisinopril (Prinivil Tab*) 5 mg PO DAILY [facility] Last Admin: 10/20/18 08:43 Dose: 5 mg Magnesium Oxide (Magox 400 Tab*) 400 mg PO BID [facility] Last Admin: 10/20/18 11:18 Dose: 400 mg Metoprolol Tartrate (Lopressor Tab*) 25 mg PO BEDTIME [facility] Last Admin: 10/19/18 20:37 Dose: 25 mg Multivitamins (Theragran Tab*) 1 tab PO DAILY [facility] Last Admin: 10/20/18 08:44 Dose: 1 tab Mycophenolate Sodium (Myfortic (Nf)) 360 mg PO BID [facility] Last Admin: 10/20/18 08:42 Dose: 360 mg Ondansetron HCl (Zofran Tab*) 4 mg PO Q6H PRN PRN Reason: NAUSEA Pantoprazole Sodium (Protonix Tab*) 40 mg PO DAILY [facility] Last Admin: 10/20/18 08:44 Dose: 40 mg Prednisone (Deltasone Tab*) 5 mg PO DAILY [facility] Last Admin: 10/20/18 08:39 Dose: 5 mg Sumatriptan Succinate (Imitrex Tab*) 50 mg PO DAILY PRN PRN Reason: MIGRAINE HEADACHE Last Admin: 10/19/18 05:47 Dose: 50 mg Tacrolimus (Prograf Cap(*)) 3 mg PO BID [facility] Last Admin: 10/20/18 08:39 Dose: 3 mg Tacrolimus (Prograf Cap(*)) 0.5 mg PO BEDTIME [facility] Last Admin: 10/19/18 20:40 Dose: 0.5 mg Topiramate (Topamax(*)) 50 mg PO DAILY [facility] Last Admin: 10/20/18 08:44 Dose: 50 mg Vortioxetine (Trintellix (Nf)) 10 mg PO DAILY WITH MEAL [facility] Last Admin: 10/20/18 08:40 Dose: 10 mg Vital Signs - 8 hr 10/20/18 10/20/18 08:00 12:17 Temperature 98.9 F Pulse Rate 86 Respiratory 20 16 Rate Blood Pressure 143/89 (mmHg) O2 Sat by Pulse 100 Oximetry Oxygen Devices in Use Now: None Appearance: alert, NAD Eyes: No Scleral Icterus, PERRLA Ears/Nose/Mouth/Throat: NL Teeth, Lips, Gums Neck: NL Appearance and Movements; NL JVP, Trachea Midline Respiratory: Symmetrical Chest Expansion and Respiratory Effort, Clear to Auscultation Cardiovascular: NL Sounds; No Murmurs; No JVD, RRR, No Edema Abdominal: NL Sounds; No Tenderness; No Distention, No Hepatosplenomegaly Extremities: No Edema, No Clubbing, Cyanosis Skin: No Rash or Ulcers Neurological: Alert and Oriented x 3, NL Gait Nutrition: - - tolerating small amount of clears Result Diagrams: 10/20/18 07:15 10/20/18 07:15 Microbiology and Other Data: Microbiology 10/17/18 13:55 Urine Culture - Final Urine No Growth (<1,000 CFU/mL) Assessment/Plan - Billing Assessment: 1. N/V - Subsiding. Symptoms more intense after AM meds and on empty stomach. Patient on prednisone and prograf which should be taken with food and are gastric irritants - Patient was an overdose last night and given activated charcoal which are also irritants - Recommend clears and advance diet slowly, continue PPI 2. Fever and Leukocytosis - Likely reactive in setting of intentional overdose and vomiting - Recheck labs, follow temps over next 24 hours, as patient may not mount full immune response in light of immune suppression - OK to give tylenol for fever or headache, no allergy confirmed, will update with pharmacy 3. Cough - Lungs clear, likely viral, will order tessalon 4. Hx of Renal Transplant - Will request staff to clarify when prograf levels are to be drawn to ensure patient is therapeutic Admission Status and Rationale: - Medically stable. Will eval labs in AM, if no change will sign off. Please re -consult if needed. Thank you.
[2018-10-20] MEDS: Metoprolol Tartrate TAB* 25 MG PO SCH (20:11)
[2018-10-20] MEDS: Atorvastatin* 20 MG TAB PO SCH (20:11)
[2018-10-20] MEDS: Tacrolimus CAP(*) 0.5 MG PO SCH (20:14)
[2018-10-21] MEDS: Tacrolimus CAP(*) 1 MG PO SCH (08:25)
[2018-10-21] MEDS: Folic Acid TAB* 1 MG PO SCH (08:25)
[2018-10-21] MEDS: Lisinopril TAB* 5 MG PO SCH (08:26)
[2018-10-21] MEDS: Pantoprazole TAB * 40 MG TAB PO SCH (08:26)
[2018-10-21] MEDS: MYCOPHENOLATE 360 MG PO SCH ×2 (08:26→20:20)
[2018-10-21] MEDS: Vitamin THERAPEUTIC TAB PO SCH (08:26)
[2018-10-21] MEDS: TACROLIMUS 1 MG PO SCH ×2 (08:26→20:21)
[2018-10-21] MEDS: predniSONE TAB* 5 MG PO SCH (08:26)
[2018-10-21] MEDS: VORTIOXETINE 10 MG PO SCH (08:26)
[2018-10-21] MEDS: Topiramate TAB(*) 25 MG PO SCH (08:26)
[2018-10-21] MEDS: Aspirin EC TAB* 81 MG TAB.EC PO SCH (08:26)
[2018-10-21] MEDS: Magnesium Oxide TAB* 400 MG PO SCH ×3 (10:57→22:13)
[2018-10-21] MEDS: Acetaminophen TAB* 325 MG PO PRN ×2 (10:57→20:22)
--- NOTE | 2018-10-21 11:34 | PN ---
Subjective - Subjective Date of Service: 10/21/18 Service Type: 34464 Hosp care 35 min high complexity Subjective: Nursing Report: Patient was visible on unit, no chemical restraints or PRNs. No events of emesis . Attending group activities. CC: "Good Patient was seen and evaluated today in the common room. She denied fever, nausea or vomiting. Her sister plans to arrive to [place] tomorrow from [place] is is looking forward to seeing her. The patient reported she feels safe on the unit and is interacting with peers. The patient reported attending and participating in day groups. She denied side effects from medication. Objective - General Observations Appearance: Neat Appears Stated Age: Yes Stature: WNL Posture: WNL Eye Contact: Average Behavior/Activity: WNL - Interaction Observations Attitude Towards Examiner: Cooperative Affect: Blunted, Full Speech Pattern/Tone: Clear Thought Process: Coherent Perception: WNL Thought Content: WNL Hallucination Type: None Delusion Type: None - Cognitive Function Orientation: A&O x 4 Level of Consciousness: Awake Cognition: WNL Judgment Within Normal Limits: Yes - Medication Compliance Cooperative with Inpatient Medication Regimen: Yes - Group Participation Participates in Group Activities: Yes Assessment - Assessment Clinical Impression: 43 year old female with a history of major depressive disorder, presented after a suicide attempt by overdosing on oxycodone. Plan - Plan Treatment Plan: Name: FANNY VARELA Birthdate: 1975 [id number] # Q30 minute observation with staff pass # Social Work on board # Continue trintellix 10mg daily, no dose adjustment required for renal disease. To take with food. #Medical management per Medicine team. #Monitor vital signs #Goals before discharge include: To eliminate/ reduce suicidal ideation Giovani her confirmed firearms locked in safe and he got rid of stockpile of medications Tentative discharge Thursday at 11am her sister and plan to pick her up. Vital Signs Temp Pulse Resp BP Pulse Ox 98.6 F 74 16 129/83 99 10/21/18 08:00 10/21/18 08:00 10/21/18 08:00 10/21/18 08:00 10/21/18 08:00 Sodium 138 mmol/L (135-145) 10/20/18 07:15 Potassium 4.2 mmol/L (3.5-5.0) 10/20/18 07:15 BUN 11 mg/dL (6-24) 10/20/18 07:15 Creatinine 1.06 mg/dL (0.51-0.95) H 10/20/18 07:15 Hemoglobin A1c 5.5 % (4.0-5.6) 10/18/18 06:54 Calcium 8.5 mg/dL (8.6-10.3) L 10/20/18 07:15 AST 13 U/L (13-39) 10/20/18 07:15 ALT 9 U/L (7-52) 10/20/18 07:15 Triglycerides 116 mg/dL 10/18/18 06:54 Cholesterol 141 mg/dL 10/18/18 06:54 LDL Cholesterol 62 mg/dL 10/18/18 06:54 Continued Medication Management: Continue Outpt Medication Medications: Current Medications Acetaminophen (Tylenol Tab*) 650 mg PO Q6H PRN PRN Reason: FEVER/HEADACHE Last Admin: 10/21/18 10:57 Dose: 650 mg Al Hydrox/Mg Hydrox/Simethicone (Maalox Plus*) 30 ml PO Q4H PRN PRN Reason: INDIGESTION Last Admin: 10/19/18 05:47 Dose: 30 ml Aspirin (Aspirin Ec Tab*) 81 mg PO DAILY [facility] Last Admin: 10/21/18 08:26 Dose: 81 mg Atorvastatin Calcium (Lipitor*) 20 mg PO BEDTIME [facility] Last Admin: 10/20/18 20:11 Dose: 20 mg Benzonatate (Tessalon Cap*) 100 mg PO BID PRN PRN Reason: COUGH Ergocalciferol (Drisdol Cap*) 5,000 unit PO WEEKLY [facility] Folic Acid (Folvite Tab*) 1 mg PO DAILY [facility] Last Admin: 10/21/18 08:25 Dose: 1 mg Lisinopril (Prinivil Tab*) 5 mg PO DAILY [facility] Last Admin: 10/21/18 08:26 Dose: 5 mg Magnesium Oxide (Magox 400 Tab*) 400 mg PO BID [facility] Last Admin: 10/21/18 10:57 Dose: 400 mg Metoprolol Tartrate (Lopressor Tab*) 25 mg PO BEDTIME [facility] Last Admin: 10/20/18 20:11 Dose: 25 mg Multivitamins (Theragran Tab*) 1 tab PO DAILY [facility] Last Admin: 10/21/18 08:26 Dose: 1 tab Mycophenolate Sodium (Myfortic (Nf)) 360 mg PO BID [facility] Last Admin: 10/21/18 08:26 Dose: 360 mg Ondansetron HCl (Zofran Tab*) 4 mg PO Q6H PRN PRN Reason: NAUSEA Pantoprazole Sodium (Protonix Tab*) 40 mg PO DAILY [facility] Last Admin: 10/21/18 08:26 Dose: 40 mg Prednisone (Deltasone Tab*) 5 mg PO DAILY [facility] Last Admin: 10/21/18 08:26 Dose: 5 mg Sumatriptan Succinate (Imitrex Tab*) 50 mg PO DAILY PRN PRN Reason: MIGRAINE HEADACHE Last Admin: 10/19/18 05:47 Dose: 50 mg Tacrolimus (Prograf Cap(*)) 0.5 mg PO BEDTIME [facility] Tacrolimus (Prograf Cap(*)) 3 mg PO BID [facility] Last Admin: 10/21/18 08:26 Dose: 3 mg Topiramate (Topamax(*)) 50 mg PO DAILY [facility] Last Admin: 10/21/18 08:26 Dose: 50 mg Vortioxetine (Trintellix (Nf)) 10 mg PO DAILY WITH MEAL [facility] Last Admin: 10/21/18 08:26 Dose: 10 mg - Discharge Plan Discharge Plan: Inpatient Hospitalization
[2018-10-21] MEDS: Atorvastatin* 20 MG TAB PO SCH (20:18)
[2018-10-21] MEDS: Metoprolol Tartrate TAB* 25 MG PO SCH (20:20)
[2018-10-21] MEDS ORDERED: TACROLIMUS 0.5 MG PO SCH (21:00)
[2018-10-22] MEDS: Acetaminophen TAB* 325 MG PO PRN (08:28)
[2018-10-22] MEDS: Vitamin THERAPEUTIC TAB PO SCH (08:29)
[2018-10-22] MEDS: Topiramate TAB(*) 25 MG PO SCH (08:30)
[2018-10-22] MEDS: Lisinopril TAB* 5 MG PO SCH (08:30)
[2018-10-22] MEDS: Aspirin EC TAB* 81 MG TAB.EC PO SCH (08:30)
[2018-10-22] MEDS: VORTIOXETINE 10 MG PO SCH (08:31)
[2018-10-22] MEDS: Pantoprazole TAB * 40 MG TAB PO SCH (08:31)
[2018-10-22] MEDS: predniSONE TAB* 5 MG PO SCH (08:31)
[2018-10-22] MEDS: Folic Acid TAB* 1 MG PO SCH (08:31)
[2018-10-22] MEDS: MYCOPHENOLATE 360 MG PO SCH (08:32)
[2018-10-22] MEDS: TACROLIMUS 1 MG PO SCH (08:33)
--- NOTE | 2018-10-22 09:02 | DS ---
Subjective - Subjective Service Types: [id number] [facility] Day Mgmt complex over 30 min Discharge Date: 10/22/18 Subjective: CC: " I am better" Patient looks forward to going hiking with her sister. The patient was seen and evaluated before discharge today. The patient reported having adequate appetite and sleep. The patient reports attending and participating in day groups. Per nursing no behavioral issues or overnight events reported. Patient reported tolerating medications without side effects. Justification for admission: Immediate Safety. CC " I took pills" The patient was brought to [facility] by her after he discovered that she overdoses on 16 pills of oxycodone that she has saved from 2 years ago , when she had a kidney transplant. She was treated for overdose in the emergency department given IV fluids and charcoal. She never lost consciousness. Upon taking the pills she went outside to throw up and noticed that the pills did not come out. At that time her saw what was going on and took her to the hospital. The patient reported current stressors to be fighting with her and not having much family support in [place] . 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 She has been taking care of her after he fell out of a tree stand. She has struggled with thoughts of leaving her because she feels that he was not compassionate about her being sick in the past with kidney issues and depression and has the mind set to "just get over it." Her sister plans to visit from [place] at the end of the week. She has access to firearms at home ( her husbands guns) and stockpiles of medications from her kidney surgery. She reported poor sleep and appetite. The patient denied homicidal ideation intent or plan. The patient denied auditory and/ or visual hallucinations. MDD She reported feeling depressed and having diminished interests which were found to be enjoyable in the past which include cooking and reading. She has been feeling empty inside, with feelings of hopelessness , and worthlessness. She reported unintentional 8lbs weight loss and diminished appetite. She has interruption of sleep and decreased concentration. Anxiety Denied having symptoms of anxiety such as having times where heart feels that it is beating out of chest , sweaty palms, or shallow breathing. Denied having uncomfortable or intrusive thoughts. Denied feeling restless, high strung, or worrying too much most of the time. Bipolar Denied symptoms of mandeep such as having many ideas at once. Denied increased talkativeness where no one can interrupt. Denied feeling irritable most of the time while having an persistent abundance of energy most of the day without the use of energy drinks, stimulants, or recreational drug use. Denied an increase in intensity in goal directed activities. Denied having the decreased need to sleep for days , having prolonged elevated heighted mood , or feeling on top of the world. Denied impulsive risky sexual encounters. Denied spending money recklessly , going on spending sprees wiping out savings. Denied impulsively traveling out of town or country, having super gregory, and unrealistic wealth or fame. Psychosis Does not endorse hearing things that other people do not hear or seeing things other people do not see. Denied feeling that TV is making references. Denied feeling that people are spying , following , or reading their thoughts. Phobias: Patient denied having excessive fear of a particular thing or situation. Eating disorders: Patient denied having excessive eating habits or feelings of guilt after eating. Denied repeated episodes of self induced vomiting after eating. PTSD Denied flashbacks, nightmares and avoidance of a prior traumatic event. PAST PSYCHIATRIC HISTORY: Prior Diagnosis : Major Depressive Disorder first episode in mid teens. History of past Psychiatric Hospitalizations: No prior psychiatric admission. History of past suicide/homicide attempts : Denied past suicide attempts. Denied past homicidal incidents. Outpatient follow-up: No mental health follow up since 2016 in [place]. Medications: Past trials of medications include vortioxetine 20mg daily. Prior positive response between [id number] and stopped taking in 2016 due to not wanting to take pills anymore. Current mediations include wellbutrin 150mg daily Guardianship: None. FAMILY HISTORY: - Suicide: Denied family history of suicide. - Mental illness: One of her sisters Dx with depression, the other Bipolar II disorder. Father Dx with Anxiety disorder - Substance abuse: Denied substance abuse among family members. SUBSTANCE ABUSE HISTORY: Denied using alcohol, tobacco, heroin cocaine or other illicit substances. Denied recreationally abusing pills. Denied past Substance abuse treatment. SOCIAL HISTORY: She grew up in [place]. Both of her parents are together and living in [place]. She denied physical and or sexual trauma. She is , no children and lives with her in [facility]. 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 - Legal history: Denied - service history: Denied PAST MEDICAL HISTORY: Focal segmental glomerulosclerosis. Dx at 32 years old and underwent a kidney transplant in December 2016. - Allergies: Penicillin, oxycodone, levofloxacin, acetaminophen. Physical Exam: Please see ED note Mental Status Exam on Admission APPEARANCE : 43 year old female who appears stated age. Patient is not malodourous, and appears to have fair hygiene and grooming. BEHAVIOR: Cooperative , calm EYE CONTACT: Fair PSYCHOMOTOR ACTIVITY: No psychomotor agitation or retardation. MOVEMENTS: No abnormal movements observed. SPEECH : Normal rate, rhythm, volume and tone. MOOD : "okay " AFFECT : Type is depressed, Range is restricted with shallow depth Mood Congruent Labile THOUGHT PROCESS: Formulated and organized in a logical, linear goal directed manner. No flight of ideas, neologism (made up words) , perseveration , tangential , loose associations , or circumstantiality. THOUGHT CONTENT: no delusions, obsessions, phobias or preoccupations. PERCEPTION: No current auditory or visual hallucinations. Doesnt appear to be responding to internal cues. No evidence of depersonalization , de-realization, or illusions SUICIDALITY Recent suicide attempt HOMICIDALITY Denied homicidal ideation, intent or plan. Insight/judgment: Fair insight and judgment ORIENTATION: Oriented to self, location, and time. Diagnosis on Admission: Major Depressive disorder, severe. Diagnosis on Discharge: Major Depressive disorder, in partial remission. Condition at the time of discharge: At the time of discharge patient showed improvement of sleep and appetite. The patient was not a danger to self or others. The patient denied suicidal ideation , intent or plan. The patient denied homicidal targets, ideation, intent or plan. This patient participated in psychosocial rehabilitation and gained some insight into problems. The patient gained insight into mental illness, triggers, and treatment. The patient took medication as prescribed. The patient denied side effects of medication and objective signs of side effects were not evident. Therapy Resources were offered to the patient. Patient was given a supply of prescriptions at the time of discharge. The patient plans to attend follow up care with the follow up arrangements that were discussed and put in place. Patient was asked to keep appointments as scheduled, take medication as prescribed, have routine follow up care with their primary care physician and refrain from any use of alcohol or drugs. Objective - General Observations Appearance: Neat Appears Stated Age: Yes Stature: WNL Posture: WNL Eye Contact: Average Behavior/Activity: WNL - Interaction Observations Attitude Towards Examiner: Cooperative Attitude Towards Parent/Guardian: Positive Interaction Stated Mood: Euthymic Affect: Full Speech Pattern/Tone: Clear Thought Process: Coherent Perception: WNL Thought Content: WNL Hallucination Type: None Delusion Type: None - Cognitive Function Orientation: A&O x 4 Level of Consciousness: Awake Cognition: WNL - Medication Compliance Cooperative with Inpatient Medication Regimen: Yes - Group Participation Participates in Group Activities: Yes Treatment Course & Assessment Clinical Course & Impression: Hospital course part A: 43 year old female with a history of major depressive disorder, presented after a suicide attempt by overdosing on oxycodone. Hospital course part B: Labs ordered included CBC, CMP, UDS, TSH, HBA1c, TSH, EKG, Toxicology screen, B- HCG, Urine analysis, and lipid profile. Labs were reviewed and did not require the need for further evaluation. Vital signs were monitored during the course of admission. The patient was admitted to the adult behavioral unit and placed on 15 minute check for safety. At a later time the patient was on Q30 minute observation and staff pass privileges. With those limits being extended , there were no occurrence of behavioral incidents. The patient did well on the unit and went to groups. Interacted with peers had adequate sleep and regular appetite. Tolerated medication changes without side effects. Group therapy and services were offered. The risks, benefits, and alternative treatment options were discussed as well as of the risks of refusing treatment. Treatment associated risks discussed. After this discussion made an acknowledgement of this understanding. Follow up care appointments were put in place for follow up care. The importance of monitoring for metabolic changes was discussed and acknowledgement of this understanding was made. Improvements in patient from the time of admission include: Improved affect, sleep and decrease in anxiety. No longer suicidal and no longer having feelings of hopelessness. The patient expressed readiness for discharge home. The patient presents with a broader range of affect, and the absence of depressed mood, delusions, perceptual disturbances. The patient denied suicidal and or homicidal ideation intent or plan. Overall, the patient responded well to inpatient treatment as evidenced by their report of strengthening of coping mechanisms, reduced distress, and more positive outlook on circumstances. Of note there was an improvement of recognizing how emotional state can effect mood and behavior. Safety precautions were put in place which included involving the patient and their family to closely monitor for changes in mental state. In addition, implementing follow up care, screening for the need to remove/securing firearms , weapons and stockpile of medications. Patient/ family instructed to immediately call 911 should any safety concerns arise. B-HCG is negative for current . She was informed of the risks associated with medication in . In the event that she becomes in the future and was advised to talk with her outpatient healthcare provider about starting or stopping medications during . The patient was advised of the 24 hour / 7 days a week availability of the emergency room and to call 911 in the event of an emergency such as being suicidal and/ or homicidal. The patient was informed of the contact information for [facility] Behavioral Services Unit, Suicide Prevention and Crisis Services, National Suicide Prevention Lifeline, [facility], Alcoholics Anonymous, and [facility]. Medications started included Trintellix 10mg daily with meal. No dose adjustment required for renal disease. And Tapered down wellbutrin due to renal interaction. Medicine consulted for medical issues and recommended repeating CMP to monitor Cr. They came to evaluate the patient after multiple episodes of emesis associated with a fever. Family meeting took place before discharge. The family confirmed that the patient is at their baseline and is in agreement with the discharge plan. They were advised about the warning signs associated with decompensation and progression of mental illness. confirmed no access to firearms and he removed stockpile of medications. Patient follows up with laboratory work at [facility] for status post kidney transplant and gets care at [facility] in [place]. She created a safety plan and verbalized that she would call her friend in [place] to talk, call her therapist and or go to the ER before holding things in and turning to overdose again. Patient will be discharged to live at home. Follow up appointment with Rosa M Millan 11/04/18 10am and PCP 10/25/18 1120am Patient informed of follow up appointment times. See more details for follow up care in the discharge plan. Risk factors: , history of depression, recent suicide attempt, medical issues related to renal transplant recipient Protective factors: Currently no suicidal ideation, intent or plan. . Has support system. No history of service. Currently no feelings of hopelessness, not in an occupation of social isolation, no family history of suicide, doesnt have access to firearms. Doesnt have command hallucinations and or psychotic features at this time. No history of substance abuse. No history of alcohol abuse. Not a anniversary of a loss of a loved one. Currently future orientated. Patient engaged in treatment and compliant with medication. Sodium 138 mmol/L (135-145) 10/20/18 07:15 Potassium 4.2 mmol/L (3.5-5.0) 10/20/18 07:15 BUN 11 mg/dL (6-24) 10/20/18 07:15 Creatinine 1.06 mg/dL (0.51-0.95) H 10/20/18 07:15 Hemoglobin A1c 5.5 % (4.0-5.6) 10/18/18 06:54 Calcium 8.5 mg/dL (8.6-10.3) L 10/20/18 07:15 AST 13 U/L (13-39) 10/20/18 07:15 ALT 9 U/L (7-52) 10/20/18 07:15 Triglycerides 116 mg/dL 10/18/18 06:54 Cholesterol 141 mg/dL 10/18/18 06:54 LDL Cholesterol 62 mg/dL 10/18/18 06:54 Vital Signs Temp Pulse Resp BP Pulse Ox 98.3 F 68 16 130/84 100 10/22/18 09:19 10/22/18 09:19 10/22/18 09:19 10/22/18 09:19 10/22/18 09:19 Merits Inpatient Hospitalization: No Clear for Discharge: Adequate Clinical Respons Discharge Planning - Discharge Planning Discharge Plan: Outpatient Follow Up Outpatient Program: Private Clinician(s) Recommendations for Continuing Care: Medication Management Medications: Current Medications Acetaminophen (Tylenol Tab*) 650 mg PO Q6H PRN PRN Reason: FEVER/HEADACHE Last Admin: 10/22/18 08:28 Dose: 650 mg Al Hydrox/Mg Hydrox/Simethicone (Maalox Plus*) 30 ml PO Q4H PRN PRN Reason: INDIGESTION Last Admin: 10/19/18 05:47 Dose: 30 ml Aspirin (Aspirin Ec Tab*) 81 mg PO DAILY [facility] Last Admin: 10/22/18 08:30 Dose: 81 mg Atorvastatin Calcium (Lipitor*) 20 mg PO BEDTIME [facility] Last Admin: 10/21/18 20:18 Dose: 20 mg Benzonatate (Tessalon Cap*) 100 mg PO BID PRN PRN Reason: COUGH Ergocalciferol (Drisdol Cap*) 5,000 unit PO WEEKLY [facility] Folic Acid (Folvite Tab*) 1 mg PO DAILY [facility] Last Admin: 10/22/18 08:31 Dose: 1 mg Lisinopril (Prinivil Tab*) 5 mg PO DAILY [facility] Last Admin: 10/22/18 08:30 Dose: 5 mg Magnesium Oxide (Magox 400 Tab*) 400 mg PO BID [facility] Last Admin: 10/21/18 22:13 Dose: 400 mg Metoprolol Tartrate (Lopressor Tab*) 25 mg PO BEDTIME [facility] Last Admin: 10/21/18 20:20 Dose: 25 mg Multivitamins (Theragran Tab*) 1 tab PO DAILY [facility] Last Admin: 10/22/18 08:29 Dose: 1 tab Mycophenolate Sodium (Myfortic (Nf)) 360 mg PO BID [facility] Last Admin: 10/22/18 08:32 Dose: 360 mg Ondansetron HCl (Zofran Tab*) 4 mg PO Q6H PRN PRN Reason: NAUSEA Pantoprazole Sodium (Protonix Tab*) 40 mg PO DAILY [facility] Last Admin: 10/22/18 08:31 Dose: 40 mg Prednisone (Deltasone Tab*) 5 mg PO DAILY [facility] Last Admin: 10/22/18 08:31 Dose: 5 mg Sumatriptan Succinate (Imitrex Tab*) 50 mg PO DAILY PRN PRN Reason: MIGRAINE HEADACHE Last Admin: 10/19/18 05:47 Dose: 50 mg Tacrolimus (Prograf Cap(*)) 0.5 mg PO BEDTIME [facility] Last Admin: 10/21/18 20:22 Dose: 0.5 mg Tacrolimus (Prograf Cap(*)) 3 mg PO BID [facility] Last Admin: 10/22/18 08:33 Dose: 3 mg Topiramate (Topamax(*)) 50 mg PO DAILY [facility] Last Admin: 10/22/18 08:30 Dose: 50 mg Vortioxetine (Trintellix (Nf)) 10 mg PO DAILY WITH MEAL [facility] Last Admin: 10/22/18 08:31 Dose: 10 mg Discharge Planning: Prescriptions provided for discharge [x] Yes [] No Follow up care details as per social work arrangements. Patient response to discharge plan: [] eager for discharge [x] agreeable with discharge plan [] ambivalent about discharge [] disagrees with discharge today
[2018-10-22 09:20] VITALS: BP 130/84
--- NOTE | 2018-10-22 12:00 | PN ---
BSU: Group Therapy Note - Service Type Service Type: 22791 Group Psychotherapy - Cognitive Behavioral Group Therapy ( CBT):Patient was attentive and participatory in CBT programming this morning, and remained in good behavioral control. Patient expressed positive insights regarding relevant treatment interventions and goals.
[2018-10-22] MEDS: Magnesium Oxide TAB* 400 MG PO SCH (12:03)
[2018-10-23] MEDS ORDERED: Ergocalciferol CAP* 50000 UNIT PO SCH (09:00)
== END 2018-10-22 12:00 | disposition home or self-care (01) | DRG 885 ==
LOC: ED 10:44 → BSU 17:29
PROVIDERS: ADMIT Psychiatry & Neurology Psychiatry; ATTEND Psychiatry & Neurology Psychiatry
PROC: GZHZZZZ Group Psychotherapy (ICD-10-PCS; principal; 2018-10-22)
DX: F32.2 Major depressive disorder, single episode, severe without psychotic features (principal); Z94.0 Kidney transplant status; T40.2X2A Poisoning by other opioids, intentional self-harm, initial encounter; F41.9 Anxiety disorder, unspecified; R11.2 Nausea with vomiting, unspecified; R50.9 Fever, unspecified; D72.829 Elevated white blood cell count, unspecified; R05 Cough; Y92.009 Unspecified place in unspecified non-institutional (private) residence as the place of occurrence of the external cause; Z81.8 Family history of other mental and behavioral disorders; Z88.1 Allergy status to other antibiotic agents; Z88.5 Allergy status to narcotic agent; Z88.0 Allergy status to penicillin; Z88.6 Allergy status to analgesic agent; Z79.52 Long term (current) use of systemic steroids; Z79.899 Other long term (current) drug therapy; Z80.8 Family history of malignant neoplasm of other organs or systems
CPT/HCPCS: 36415; 80048; 80053; 80061; 80307; 80320; 80329; 81003; 81015; 83036; 83605; 84443; 84702; 85025; 87086; 90853; 93005; 99222; 99233; 99238; 99284; A9270-GY; G0480; J2405; J7507; J7512